=== PATIENT | female | born 1990 | race African-American/Black ===

== ENCOUNTER 2016-12-20 11:23 | Emergency (ER) | payer OTHER ==
[2016-12-20 11:40] VITALS: BP 149/88
--- NOTE | 2016-12-20 12:07 | UC ---
Skin Complaint HPI - History of Current Complaint Chief Complaint: UCWounds Stated Complaint: ABCESS Hx Obtained From: Patient Hx Last Menstrual Period: end of October ?: No Onset/Duration: Gradual Onset - over past 3-4 days has had increasing fonseca and pressure top of buttocks. she soaked in warm wtaer lst molina and the swelling "popped open nad " alot od drainage came out. a bit better today but still draining and painful Onset Severity: Mild Current Severity: Moderate Location: Discrete Aggravating Factor(s): Touch, Other - sitting Alleviating Factor(s): Other - warmth Associated Signs & Symptoms: Negative: Fever, Chills - Allergy/Home Medications Allergies/Adverse Reactions: Allergies Allergy/AdvReac Type Severity Reaction Status Date / Time No Known Allergies Allergy Verified 12/20/16 11:40 Home Medications: Home Medications Methocarbamol [Robaxin-750 MG TAB] 750 mg PO BID PRN 12/20/16 [History] Review of Systems Constitutional: Negative Skin: Other - draining lump top buttocks- no prior hx of same Respiratory: Negative Cardiovascular: Negative Gastrointestinal: Negative Genitourinary: Negative Neurological: Negative Psychological: Negative All Other Systems Reviewed And Are Negative: Yes PMH/Surg Hx/FS Hx/Imm Hx Previously Healthy: Yes - Surgical History Surgical History: None - Family History Known Family History: Positive: None - Social History Occupation: Employed Part-time Lives: With Family Alcohol Use: Weekly Alcohol Amount: 1-2 drink Substance Use Type: Marijuana Smoking Status (MU): Former Smoker Amount Used/How Often: 1 pack per 3 months Have You Smoked in the Last Year: Yes When Did the Patient Quit Smoking/Using Tobacco: 1 year ago Physical Exam Triage Information Reviewed: Yes Appearance: Well-Appearing, No Pain Distress, Obese Vital Signs: Initial Vital Signs Temp 98.3 F 12/20/16 11:34 Pulse 73 12/20/16 11:34 Resp 18 12/20/16 11:34 BP 149/88 12/20/16 11:34 Pulse Ox 100 12/20/16 11:34 Vital Signs Reviewed: Yes Eye Exam: Normal Respiratory Exam: Normal Cardiovascular Exam: Normal Skin Exam: Other - moderate sized, tender abscess upper buttock, open and draining purulent drainage Course/Dx - Differential Diagnoses - Skin Complaint Differential Diagnoses: Abscess, Cellulitis - Diagnoses Provider Diagnoses: pilonidal abscess Discharge - Discharge Plan Condition: Good Disposition: HOME Patient Education Materials: Pilonidal Cyst (ED) Referrals: Goldie Quinonez MD [Primary Care Provider] - 2 Days (recheck) Additional Instructions: soak in warm soapy water 3 times a day and apply gentle pressure to open area. inuprofen 800mg every 4-6 hours as needed for pain apply Hibiclens solution to area once daily (this is over the counter)
== END 2016-12-20 12:15 | disposition home or self-care (01) ==
LOC: UCEAST 11:23
DX: L05.01 Pilonidal cyst with abscess (principal)
CPT/HCPCS: 99212; G0463